=== PATIENT | female | born 2000 | race Caucasian/White ===

== ENCOUNTER 2018-03-23 15:26 | Emergency (ER) | payer OTHER ==
[~2018-03-23] VITALS: Ht 160 cm; Wt 54.7 kg
[~2018-03-23 15:26] MED LIST: NO HOME MEDS
[2018-03-23] MEDS ORDERED: PEPCID20 MG PO (18:34)
[2018-03-23] MEDS ORDERED: EPIPEN ADU0.3 MG/0.3 IM (18:34)
[2018-03-23] MEDS ORDERED: BENADRYL50 MG PO (18:34)
[2018-03-23 18:54] VITALS: BP 129/68
== END 2018-03-23 19:13 | disposition home or self-care (01) ==
LOC: EME 15:26
DX: T63.441A Toxic effect of venom of bees, accidental (unintentional), initial encounter (principal); F41.9 Anxiety disorder, unspecified; J45.909 Unspecified asthma, uncomplicated
CPT/HCPCS: 94640; 99281; 99285; J1100